=== PATIENT | female | born 1980 | race Caucasian/White ===

== ENCOUNTER 2016-07-26 00:04 | Emergency (ER) | payer OTHER ==
[~2016-07-26] VITALS: Ht 160 cm; Wt 50.3 kg
[~2016-07-26 00:04] MED LIST: PRENTAB26 PO
[2016-07-26 00:05] VITALS: TEMP 36.3; Ht 160 cm; Wt 50.3 kg
[2016-07-26] MEDS ORDERED: KETOROLAC TROMETHAMINE 30 MG/ML VIAL IV STA (00:16)
[2016-07-26] MEDS ORDERED: SODIUM CHLORIDE 0.9% 1000ML 1,000 ML IV STA (00:16)
[2016-07-26] MEDS ORDERED: ONDANSETRON INJ 2 MG/ML 2 ML VIAL IV STA (00:16)
[2016-07-26] MEDS ORDERED: SODIUM CHLORIDE 0.9% 1000ML 1,000 ML IV ONE (00:16)
--- NOTE | 2016-07-26 00:25 | EMERGENCY ROOM VISIT NOTE ---
History Report prepared by Brannon: Tana Tapia Under the Supervision of: Dr. Artie Velasquez M.D. First contact with patient: 00:10 Chief Complaint: VOMITING Stated Complaint: VOMITING History of Present Illness The patient is a 35 year old female who presents to the Emergency Room with complaints of intermittent vomiting beginning tonight. The patient states that her entire family has been sick with the same illness and her children were sick for 2-3 days when they had it. She complains of chest pain related to heart burn, diarrhea, cough, finger and leg numbness. She denies any shortness of breath, fever, unusual food, and any chance of . The patient notes that vomiting relieves her symptoms for about 5 minutes. She states that she is on control and has no history of C-Diff. She reports that she has a history of panic attacks and anxiety. Source of History: patient Onset: tonight Position: other (global) Quality: other (vomiting) Timing: constant Modifying Factors (Relieving): other (vomiting) Associated Symptoms: + chest pain, + cough, + diarrhea, + numbness, No SOB, No fevers Note: She denies any unusual food, and any chance of . Review of Systems See HPI for pertinent positives & negatives. A total of 10 systems reviewed and were otherwise negative. Past Medical & Surgical Medical Problems: (1) No Known Active Medical Problems Old medical records were reviewed. Nurse's notes were reviewed and I agree with. Family History No pertinent family history stated. Social History Smoking Status: Former Smoker Marital Status: Housing Status: lives with family Current/Historical Medications Scheduled Multivit/Min/Iron/Fol Ac/Pren ( Vitamin), 1 TAB PO DAILY Ondasetron Odt (Zofran Odt), 4 MG SL Q6H Allergies Coded Allergies: Latex1 -Allergic Contact Dermititis (Verified Allergy, Intermediate, REDDENED SKIN WITH WHITE BLISTERS, 07/26/16) Physical Exam Vital Signs Date Time Temp Pulse Resp B/P Pulse Ox O2 Delivery O2 Flow Rate FiO2 07/26/16 02:23 116 18 121/88 100 07/26/16 00:05 36.3 116 20 115/73 100 Room Air Physical Exam General: Well developed well nourished uncomfortably mildly ill appearing young female, breathing comfortably on room air. Normal speech HEENT: Normal cephalic atraumatic. Pupils are equal round and reactive to light. Extraocular movements are intact. Oropharynx is pink with moist mucous membranes. No swelling of the mouth lips or tongue. Neck: Supple with a midline trachea. No meningeal signs or stiffness, no JVD or bruits. No Stridor. Chest: Clear to auscultation bilaterally. No wheezes or rhonchi. No increased work of breathing. No respiratory distress. Heart: regular rate and rhythm. Abdomen: Soft, nondistended without rebound guarding or rigidity. Mildly tender to lower abdomen bilaterally. Extremities: No cyanosis clubbing or edema. No calf tenderness or assymetry Spine/Back. Non tender to palpation. No CVA tenderness Skin: Good turgor without rashes. Neurologic exam: Cranial nerves two through 12 are intact. Motor and sensation are intact and symmetrical throughout. Medical Decision & Procedures Laboratory Results 07/26/16 00:36 Red Blood Count 5.32, Mean Corpuscular Volume 86.8, Mean Corpuscular Hemoglobin 30.3, Mean Corpuscular Hemoglobin Concent 34.8, Mean Platelet Volume 10.1, Neutrophils (%) (Auto) 82.5, Lymphocytes (%) (Auto) 9.7, Monocytes (%) (Auto) 6.5, Eosinophils (%) (Auto) 0.9, Basophils (%) (Auto) 0.2, Neutrophils # (Auto) 7.11, Lymphocytes # (Auto) 0.84, Monocytes # (Auto) 0.56, Eosinophils # (Auto) 0.08, Basophils # (Auto) 0.02 07/26/16 00:36 Test 07/26/16 00:36 White Blood Count 8.63 K/uL (4.8-10.8) Red Blood Count 5.32 M/uL (4.2-5.4) Hemoglobin 16.1 g/dL (12.0-16.0) Hematocrit 46.2 % (37-47) Mean Corpuscular Volume 86.8 fL (80-100) Mean Corpuscular Hemoglobin 30.3 pg (25-34) Mean Corpuscular Hemoglobin Concent 34.8 g/dl (32-36) Platelet Count 254 K/uL (130-400) Mean Platelet Volume 10.1 fL (7.4-10.4) Neutrophils (%) (Auto) 82.5 % Lymphocytes (%) (Auto) 9.7 % Monocytes (%) (Auto) 6.5 % Eosinophils (%) (Auto) 0.9 % Basophils (%) (Auto) 0.2 % Neutrophils # (Auto) 7.11 K/uL (1.4-6.5) Lymphocytes # (Auto) 0.84 K/uL (1.2-3.4) Monocytes # (Auto) 0.56 K/uL (0.11-0.59) Eosinophils # (Auto) 0.08 K/uL (0-0.5) Basophils # (Auto) 0.02 K/uL (0-0.2) RDW Standard Deviation 39.5 fL (36.4-46.3) RDW Coefficient of Variation 12.3 % (11.5-14.5) Immature Granulocyte % (Auto) 0.2 % Immature Granulocyte # (Auto) 0.02 K/uL (0.00-0.02) Anion Gap 13.0 mmol/L (3-11) Est Creatinine Clear Calc Drug Dose 69.9 ml/min Estimated GFR () 96.7 Estimated GFR (Non- 83.4 BUN/Creatinine Ratio 15.9 (10-20) Calcium Level 9.2 mg/dl (8.5-10.1) Total Bilirubin 1.0 mg/dl (0.2-1) Direct Bilirubin mg/dl (0-0.2) Aspartate Amino Transf (AST/SGOT) U/L (15-37) Alanine Aminotransferase (ALT/SGPT) 22 U/L (12-78) Alkaline Phosphatase 54 U/L (45-117) Total Protein 8.6 gm/dl (6.4-8.2) Albumin 4.3 gm/dl (3.4-5.0) Lipase 156 U/L (73-393) Human Chorionic Gonadotropin, Qual NEG (NEG) Laboratory studies as stated above per my review. Medications Administered Medications (Trade) Dose Ordered Sig/Levi Route Start Time Stop Time Status Last Admin Dose Admin Sodium Chloride (Nss 1000ml) 1,000 ml @ 999 mls/hr Q1H1M STAT IV 07/26/16 00:16 07/26/16 01:16 DC 07/26/16 00:16 999 MLS/HR Ondansetron HCl (Zofran Inj) 4 mg NOW STAT IV 5/7/17 00:16 07/26/16 00:20 DC 07/26/16 00:16 4 MG Ketorolac Tromethamine (Toradol Inj) 30 mg NOW STAT IV 07/26/16 00:16 07/26/16 00:20 DC 07/26/16 00:16 30 MG Ondansetron HCl (ZOFRAN ODT 4MG Home Pack) 1 [facility] STK-MED ONCE .ROUTE 07/26/16 01:52 07/26/16 01:53 DC 07/26/16 01:52 1 [facility] ED Course 0010: Past medical records reviewed. The patient was evaluated in room B4, and a complete history and physical examination were performed. 0016: Toradol Inj 30mg IV, Zofran Inj 4mg IV, Sodium Chloride 1000 ml @ 200 mls/ hr IV, Sodium Chloride 1000 ml @ 999 mls/hr IV. 0159: Upon reevaluation, the patient is doing well. I discussed the results and treatment plan with the patient. She verbalized agreement of the treatment plan. The patient was discharged home. Medical Decision Differentials include, but are not limited to; dehydration, gastroenteritis, infection, electrolyte or metabolic abnormality, . This patient comes in as described above she's had nausea vomiting diarrhea at started earlier today. She has some cramping in her hands to him even hyperventilating. She has had crampy abdominal pain. Multiple family hours are sick with similar complaints. She's had no fever. No trauma. No other medical problems chronically. IV access established and she was hydrated with a 1 L IV normal saline bolus and 200 mL normal saline. She was given Zofran 4 mg IV and Toradol 30 mg IV for pain and nausea management. She was reassessed frequently. She feels significantly better after receiving the hydration and looks good and would like to go home. Her abdomen is benign. Multiple blood testing. She has no significant electrolyte or metabolic abnormalities. I think is most likely has a gastroenteritis. Family is also sick with similar symptoms. She will return if: Worsening of symptoms, fever or chills, any new problems or concerns. Impression Primary Impression: Gastroenteritis Additional Impression: Dehydration Scribe Attestation The scribe's documentation has been prepared under my direction and personally reviewed by me in its entirety. I confirm that the note above accurately reflects all work, treatment, procedures, and medical decision making performed by me. Departure Information Dispostion Home / Self-Care Prescriptions Ondasetron Odt (ZOFRAN ODT) 4 Mg Tab 4 MG SL Q6H for Nausea, #10 TAB Prov: Artie Velasquez M.D. 07/26/16 Referrals Kirit Cardenas M.D. (PCP) Forms HOME CARE DOCUMENTATION FORM, IMPORTANT VISIT INFORMATION Patient Instructions My [facility] Additional Instructions Rest. Drink plenty of fluids. Mild diet. Slowly advance. For nausea, use Zofran 4 mg under the tongue every 6 hours as needed For diarrhea, may use Imodium and [id number] dosages For pain or cramps may use ibuprofen 400 mg every 6 hours. [id number] Return if: Increasing pain, fever or chills, worsening of symptoms, any new problems or concerns. Problem Qualifiers
[2016-07-26 00:46] LABS: BASO % 0.2 %; BASO ABS # 0.02 K/uL (0-0.2); COMPLETE YES; EOS % 0.9 %; HEMATOCRIT 46.2 % (37-47); IG% 0.2 %; LYMPH % 9.7 %; LYMPH ABS # 0.84 K/uL (1.2-3.4); MEAN CELL VOLUME 86.8 fL (80-100); MEAN CORPUSCULAR HEMOGLOBIN 30.3 pg (25-34); MEAN CORPUSCULAR HGB CONC 34.8 g/dl (32-36); MEAN PLATELET VOLUME 10.1 fL (7.4-10.4); MONO % 6.5 %; NEUT % 82.5 %; PLATELET COUNT 254 K/uL (130-400); RED BLOOD COUNT 5.32 M/uL (4.2-5.4); WHITE BLOOD COUNT 8.63 K/uL (4.8-10.8)
[2016-07-26 01:11] LABS: PREG INTERNAL NEGATIVE QC NEG CLEAR BACKGROUND; PREG INTERNAL POSITIVE QC POS CONTROL LINE
[2016-07-26 01:21] LABS: ALKALINE PHOSPHATASE 54 U/L (45-117); ALT/SGPT 22 U/L (12-78); BLOOD UREA NITROGEN 14 mg/dl (7-18); BUN/CREATININE RATIO 15.9 (10-20); CALCIUM 9.2 mg/dl (8.5-10.1); CARBON DIOXIDE 24 mmol/L (21-32); CHLORIDE 104 mmol/L (98-107); GLUCOSE 120 mg/dl (70-99); SODIUM 141 mmol/L (136-145)
[2016-07-26] MEDS ORDERED: ONDA4TAB10 SL (01:36)
[2016-07-26] MEDS ORDERED: ONDANSETRON HOME PACK 4MG OD TAB ONE (01:52)
[2016-07-26 02:23] VITALS: BP 121/88; PULSE 116; O2SAT 100
== END 2016-07-26 02:24 | disposition home or self-care (01) ==
LOC: C.EDB 00:05
DX: K52.9 Noninfective gastroenteritis and colitis, unspecified (principal); E86.0 Dehydration; Z87.891 Personal history of nicotine dependence; Z91.040 Latex allergy status